=== PATIENT | male | born 1995 ===

== ENCOUNTER 2022-02-23 22:44 | Emergency (ER) | payer SELFPAY ==
[2022-02-24 00:12] LABS: Hematocrit 46.7 % (35.5-45.6); Hemoglobin 15.9 gm/dl (11.8-15.2); Mean Corpuscular HGB Conc 34 % (32-34); Mean Corpuscular Volume 94 fl (84-94); Platelet Count 247 K/mm3 (140-440); Red Cell Distribution Width 15.8 % (13.2-15.2)
[2022-02-24 00:29] LABS: Alanine Aminotransferase 13 units/L (7-56); Albumin 5.2 g/dL (3.9-5); BUN/Creatinine Ratio 13; Blood Urea Nitrogen 10 mg/dL (9-20); Calcium 9.3 mg/dL (8.4-10.2); Hemolysis Index 11
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
[2022-02-24 00:47] LABS: Color,Urine Colorless (Yellow)
[2022-02-24 00:52] LABS: RBC,Urine < 1.0 /HPF (0.0-6.0); WBC,Urine < 1.0 /HPF (0.0-6.0)
[2022-02-24 01:11] LABS: Amphetamine Screen,Urine PRESUMPTIVE NEGATIVE; Benzodiazepines Screen,Urine PRESUMPTIVE NEGATIVE; Cannabinoid Screen,Urine PRESUMPTIVE NEGATIVE; Cocaine Screen,Urine PRESUMPTIVE POSITIVE; Methadone Screen,Urine PRESUMPTIVE NEGATIVE; Opiate Screen,Urine PRESUMPTIVE NEGATIVE
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
[2022-02-24] MEDS ORDERED: HYDROcodone/ACETAMINOPHEN 5-325 MG TAB PO ONE (01:44)
[2022-02-24 04:22] VITALS: BP 122/78
== END 2022-02-24 04:26 | disposition home or self-care (01) ==
LOC: ED 22:44
DX: S82.891A Other fracture of right lower leg, initial encounter for closed fracture (principal); Y08.89XA Assault by other specified means, initial encounter; Y93.89 Activity, other specified; Y92.89 Other specified places as the place of occurrence of the external cause; Y99.8 Other external cause status; F17.200 Nicotine dependence, unspecified, uncomplicated; F12.90 Cannabis use, unspecified, uncomplicated; Z79.899 Other long term (current) drug therapy
CPT/HCPCS: 36415; 70140; 71111; 74018; 80053; 80307; 80320; 81001; 83690; 85027; 99284; G0480